=== PATIENT | female | born 1975 | race Caucasian/White ===

== ENCOUNTER 2021-06-13 09:52 | Day surgery (SDC) | payer BC ==
[~2021-06-13 09:52] MED LIST: Lactated Ringers 1,000 ML IV SCH; Sodium Chloride 0.9% 10 ML Syringe FLUSH PRN; Sodium Chloride 0.9% 2.5 ML Syringe FLUSH PRN; Sodium Chloride 0.9% 20 ML SDV IV PRN
[2021-06-13] MEDS ORDERED: fentaNYL 100 MCG/2 ML SDV ONE (11:15)
[2021-06-13] MEDS ORDERED: Propofol 200 MG/20 ML SDV ONE (11:15)
[2021-06-13 12:55] VITALS: BP 101/70; PULSE 62
== END 2021-06-13 12:32 | disposition home or self-care (01) ==
LOC: MW.SDS 09:52
PROVIDERS: ATTEND Surgery
DX: D12.2 Benign neoplasm of ascending colon (principal); D12.3 Benign neoplasm of transverse colon; K21.9 Gastro-esophageal reflux disease without esophagitis; E66.3 Overweight; F41.9 Anxiety disorder, unspecified; Z68.28 Body mass index [BMI] 28.0-28.9, adult; Z88.2 Allergy status to sulfonamides; Z88.8 Allergy status to other drugs, medicaments and biological substances; Z91.018 Allergy to other foods; Z88.7 Allergy status to serum and vaccine; Z79.899 Other long term (current) drug therapy; Z79.84 Long term (current) use of oral hypoglycemic drugs; Z90.49 Acquired absence of other specified parts of digestive tract; Z98.890 Other specified postprocedural states; Z90.89 Acquired absence of other organs; Z90.711 Acquired absence of uterus with remaining cervical stump; Z87.891 Personal history of nicotine dependence; Z86.16 Personal history of COVID-19
CPT/HCPCS: 00811; 82947; J2704; J3010; J7120

== ENCOUNTER 2025-01-19 08:43 | Day surgery (SDC) | payer BC ==
[~2025-01-19 08:43] MED LIST changes: -Lactated Ringers 1,000 ML IV SCH; -Sodium Chloride 0.9% 20 ML SDV IV PRN
[2025-01-19] MEDS: Lactated Ringers 1,000 ML IV SCH (09:08)
[2025-01-19] MEDS ORDERED: propofoL 500 MG/50 ML 50 ML ONE (09:26)
[2025-01-19 11:28] VITALS: BP 127/67; PULSE 58
== END 2025-01-19 10:52 | disposition home or self-care (01) ==
LOC: MW.SDS 08:43
PROVIDERS: ATTEND Surgery
DX: Z12.11 Encounter for screening for malignant neoplasm of colon (principal); D12.5 Benign neoplasm of sigmoid colon; E66.3 Overweight; Z88.8 Allergy status to other drugs, medicaments and biological substances; Z88.2 Allergy status to sulfonamides; Z72.0 Tobacco use; Z79.899 Other long term (current) drug therapy; Z86.0100 Personal history of colon polyps, unspecified
CPT/HCPCS: 45380; J2003; J2704; J7120; 00811